=== PATIENT | female | born 1990 | race Caucasian/White ===

== ENCOUNTER 2019-02-16 04:28 | Emergency (ER) | payer MEDICAID ==
[~2019-02-16] VITALS: Ht 152.4 cm; Wt 63.5 kg
[2019-02-16 04:36] VITALS: Ht 152.4 cm; Wt 63.5 kg
[2019-02-16 07:10] VITALS: BP 130/85
== END 2019-02-16 07:10 | disposition home or self-care (01) ==
LOC: ED 04:28
DX: S61.216A Laceration without foreign body of right little finger without damage to nail, initial encounter (principal); S00.03XA Contusion of scalp, initial encounter; S50.11XA Contusion of right forearm, initial encounter; S80.211A Abrasion, right knee, initial encounter; Z90.89 Acquired absence of other organs; Z88.8 Allergy status to other drugs, medicaments and biological substances; Y04.0XXA Assault by unarmed brawl or fight, initial encounter; Y93.89 Activity, other specified; Y92.89 Other specified places as the place of occurrence of the external cause; Y99.8 Other external cause status